=== PATIENT | female | born 1950 | race Caucasian/White ===

== ENCOUNTER → 2019-08-28 | Outpatient (CLI) | payer MEDICARE ==
[~2019-08-28] MED LIST: ACYC-113 PO; AMLO2.5T5 PO; ASCO-96 PO; BIOT1TAB2 PO; CALC600T4 PO; CBD TP; CHOL5000 PO; DICL100G19 TP; DICL50TA2 PO; FINA5TAB4 PO; GLUC1TAB29 PO; HYDR200T72 PO; LACT1CAP20 PO; LEVO100T5 PO; MAGN200T PO; MULT-709 PO; OMEG1CAP23 PO; OMEP10CA5 PO; SPIR50TA4 PO; TELM40TA PO
[2019-08-28 15:10] LABS: ALBUMIN 4.1 g/dL (3.4-5.0); ANION GAP 8 mmol/L (5-15); CALCIUM 9.9 mg/dL (8.5-10.1); CHLORIDE 103 mmol/L (98-107)
[2019-08-28 15:13] LABS: ALANINE AMINOTRANSFERASE 40 U/L (12-78); ALKALINE PHOSPHATASE 55 U/L (45-117); BILIRUBIN,TOTAL 0.3 mg/dL (0.2-1.0); CREATININE 0.99 mg/dL (0.55-1.02); TOTAL PROTEIN 7.8 g/dL (6.4-8.2)
[2019-08-28 15:17] LABS: MICROSCOPIC NOT IND
[2019-08-28 15:30] LABS: CULTURE INDICATED? NO
== END | disposition home or self-care (01) ==
LOC: STAR 14:00
PROVIDERS: ATTEND Podiatrist Foot & Ankle Surgery
DX: Z01.818 Encounter for other preprocedural examination (principal); M19.071 Primary osteoarthritis, right ankle and foot; Z91.041 Radiographic dye allergy status
CPT/HCPCS: 36415; 80053; 81003; 93005

== ENCOUNTER 2020-12-31 12:19 | Outpatient (CLI) | payer MEDICARE ==
[~2020-12-31 12:19] MED LIST changes: +ACID1TAB7 PO; -ACYC-113 PO; +ACYC200C13 PO; -CALC600T4 PO; +CALC600T60 PO
== END 2020-12-31 23:59 | disposition home or self-care (01) ==
LOC: CVU 12:19
PROVIDERS: ATTEND Internal Medicine Cardiovascular Disease
DX: Z01.810 Encounter for preprocedural cardiovascular examination (principal); I65.23 Occlusion and stenosis of bilateral carotid arteries; I10 Essential (primary) hypertension
CPT/HCPCS: 93880

== ENCOUNTER 2021-01-06 10:05 | Day surgery (SDC) | payer MEDICARE ==
[~2021-01-06] VITALS: Ht 162.6 cm; Wt 100.0 kg
[2021-01-06] MEDS ORDERED: CALC500T29 PO (10:50)
[2021-01-06] MEDS ORDERED: PLEASE ENTER HEIGHT AND WEIGHT MC SCH (11:00)
[2021-01-06] MEDS ORDERED: SODIUM CHLORIDE 0.9% 1,000 ML IV SCH ×2 (11:00→13:00)
[2021-01-06] MEDS ORDERED: DIPHENHYDRAMINE 50 MG/ML, 1ML IVPush ONE (11:00)
[2021-01-06 11:19] LABS: BASOPHILS % (AUTO) 1 % (0-1); EOSINOPHILS % (AUTO) 1 % (1-7); LYMPHOCYTES % (AUTO) 29 % (22-44); MEAN CORPUSCULAR HEMOGLOBIN 30.2 pg (27.0-34.8); MEAN CORPUSCULAR HGB CONC 33.5 g/dL (32.4-35.8); MEAN PLATELET VOLUME 8.7 fL (7.4-10.4); MONOCYTES % (AUTO) 7 % (2-9); NEUTROPHILS % (AUTO) 62 % (42-75); PLATELET COUNT 266 x10^3/uL (130-400); RED BLOOD COUNT 4.23 x10^6/uL (3.82-5.3); RED CELL DISTRIBUTION WIDTH 13.8 % (9.6-15.2)
[2021-01-06 11:21] LABS: MD NO
[2021-01-06 11:30] LABS: ANION GAP 5 mmol/L (5-15); CALCIUM 10.2 mg/dL (8.5-10.1); CHLORIDE 105 mmol/L (98-107); CREATININE 0.77 mg/dL (0.55-1.02)
[2021-01-06 11:32] LABS: INTERNATIONAL NORMALIZED RATIO 1.03 (0.93-1.1)
[2021-01-06] MEDS ORDERED: VERAPAMIL 2.5 MG/ML, 2ML ONE (11:54)
[2021-01-06] MEDS ORDERED: HEPARIN 1,000 UNITS/ML, 10ML ONE (11:54)
[2021-01-06] MEDS ORDERED: MIDAZOLAM 1 MG/ML, 5ML ONE (11:54)
[2021-01-06] MEDS ORDERED: LIDOCAINE-MPF 1%, 5ML ONE (11:54)
[2021-01-06] MEDS ORDERED: FENTANYL PF 100 MCG/2ML ONE (11:54)
[2021-01-06] MEDS ORDERED: DIPHENHYDRAMINE 50 MG/ML, 1ML ONE (12:08)
== END 2021-01-06 14:13 | disposition home or self-care (01) ==
LOC: CACL 10:05
PROVIDERS: ATTEND Internal Medicine Cardiovascular Disease
DX: I35.0 Nonrheumatic aortic (valve) stenosis (principal); I20.9 Angina pectoris, unspecified; I10 Essential (primary) hypertension; M32.9 Systemic lupus erythematosus, unspecified; E66.3 Overweight; Z68.39 Body mass index [BMI] 39.0-39.9, adult; Z79.01 Long term (current) use of anticoagulants; Z79.890 Hormone replacement therapy; Z79.899 Other long term (current) drug therapy; Z88.8 Allergy status to other drugs, medicaments and biological substances; Z91.041 Radiographic dye allergy status
CPT/HCPCS: 36415; 80048; 83880; 85025; 85610; 85730; 93458; 99156; C1769; C1894; J1200; J1644; J2250; J3010; Q9967

== ENCOUNTER 2021-02-21 16:33 | Inpatient (IN) | payer MEDICARE ==
[~2021-02-21] VITALS: Ht 162.6 cm; Wt 113.1 kg
[~2021-02-21 16:33] MED LIST changes: +CALC500T29 PO
--- NOTE | 2021-02-21 17:02 | NUR ---
TO ROOM FROM LOBBY .
--- NOTE | 2021-02-21 17:17 | NUR ---
STUDENT AT BEDSIDE FOR EVAL.
--- NOTE | 2021-02-21 17:22 | NUR ---
RT SHOULDER SURGERY 02/19/21. TODAY, PT HAS C/O TREMORS, HEADACHE AND EXTREMITY SWELLING. PT RESTING ON GURNEY W/ CALL LIGHT IN REACH, FAMILY AT BEDSIDE AND SIDE RAILS UPX2. PAULETTE ROSALES.
[2021-02-21] MEDS ORDERED: KETOROLAC 30 MG/1 ML IM ONE (17:30)
--- NOTE | 2021-02-21 17:34 | NUR ---
PT NOW HAS C/O LT LEG CRAMPS
--- NOTE | 2021-02-21 17:58 | NUR ---
URINE COLLECTED AND SENT TO LAB.
--- NOTE | 2021-02-21 18:00 | NUR ---
Susie stewart in [facility] - 02/21/21 at 1800 by [facility] AT BEDSIDE.
[2021-02-21 18:02] LABS: MICROSCOPIC NOT IND
[2021-02-21 18:20] LABS: BASOPHILS % (AUTO) 1 % (0-1); EOSINOPHILS % (AUTO) 3 % (1-7); LYMPHOCYTES % (AUTO) 22 % (22-44); MEAN CORPUSCULAR HEMOGLOBIN 30.8 pg (27.0-34.8); MEAN CORPUSCULAR HGB CONC 34.2 g/dL (32.4-35.8); MEAN PLATELET VOLUME 8.2 fL (7.4-10.4); MONOCYTES % (AUTO) 11 % (2-9); NEUTROPHILS % (AUTO) 63 % (42-75); PLATELET COUNT 287 x10^3/uL (130-400); RED BLOOD COUNT 2.67 x10^6/uL (3.82-5.3); RED CELL DISTRIBUTION WIDTH 13.6 % (9.6-15.2)
[2021-02-21] MEDS ORDERED: MORPHINE SULFATE 4 MG/ML, 1ML ONE ×2 (18:28→20:32)
[2021-02-21 18:31] LABS: ALANINE AMINOTRANSFERASE 41 U/L (12-78); ALBUMIN 3.2 g/dL (3.4-5.0); ANION GAP 6 mmol/L (5-15); CALCIUM 9.4 mg/dL (8.5-10.1); CHLORIDE 104 mmol/L (98-107); CREATININE 0.73 mg/dL (0.55-1.02)
[2021-02-21] MEDS: MORPHINE SULFATE 4 MG/ML, 1ML IVPush PRN ×2 (18:31→20:35)
[2021-02-21 18:33] LABS: ALKALINE PHOSPHATASE 118 U/L (45-117); BILIRUBIN,TOTAL 0.4 mg/dL (0.2-1.0); TOTAL PROTEIN 6.7 g/dL (6.4-8.2)
--- NOTE | 2021-02-21 18:38 | NUR ---
PT PLACED ON 4L NC S/P G[employer] WORKER FOR SAFETY.
--- NOTE | 2021-02-21 19:00 | NUR ---
PT PROVIDED W/ 2 ICEPACKS FOR SHOULDER PER PT REQUEST.
--- NOTE | 2021-02-21 19:38 | NUR ---
STUDENT AT BEDSIDE TO UPDATE PT ON POC FOR ADMIT.
--- NOTE | 2021-02-21 20:44 | NUR ---
PER DR.WILSON AMEZCUA FOR PT TO TAKE HOME OXCODONE 5 AND ROBAXIN. Addendum: 02/21/21 at [address]WILSON AMEZCUA FOR PT TO TAKE HOME OXCODONE 5 X2 PRESCRIBED (10MG TOTAL) AND ROBAXIN 750MG.
[2021-02-21] MEDS ORDERED: NYST1000 PO (20:56)
[2021-02-21] MEDS ORDERED: OXYC5CAP2 PO (20:56)
[2021-02-21] MEDS ORDERED: AMOX-367 PO (20:56)
[2021-02-21] MEDS ORDERED: ONDA4TAB7 PO (20:56)
[2021-02-21] MEDS ORDERED: LIDO700A20 TD (20:56)
[2021-02-21] MEDS ORDERED: NAPR-685 PO (20:56)
[2021-02-21] MEDS ORDERED: METH-640 PO (20:56)
[2021-02-21] MEDS ORDERED: HYDR-826 PO ×2 (20:56)
--- NOTE | 2021-02-21 20:58 | NUR ---
US AT BEDSIDE.
--- NOTE | 2021-02-21 21:00 | NUR ---
PT 1 PERSON ASSIST TO BEDSIDE COMMODE. ASSISTED BY DAUGHTER. RETURNED TO ROOM W/O INCIDENT.
--- NOTE | 2021-02-21 21:42 | NUR ---
PURPLE SLIP SENT TO PHARM
--- NOTE | 2021-02-21 21:42 | NUR ---
CONSENT FOR BLOOD TRANSFUSION SIGNED AND PLACED IN CHART.
--- NOTE | 2021-02-21 21:56 | NUR ---
REPORT GIVEN TO IVANA COLLIER. ASSUMING CARE OF PT AT THIS TIME. AWAITING BLOOD FROM BLOOD BANK AND ADMIT ORDER. PT RESTING ON GURNEY W/ CALL LIGHT IN REACH AND SIDE RAILS UPX2. RESP EVEN AND UNLABORED, PAULETTE.
[2021-02-21 22:17] VITALS: BP 118/34
[2021-02-21 22:32] VITALS: BP 119/57
--- NOTE | 2021-02-21 22:57 | NUR ---
REPORT TO DIONNE COLLIER.
--- NOTE | 2021-02-21 23:00 | NUR ---
HOSPITALIST AT BEDSIDE.
[2021-02-22] VITALS (7 sets, daily range): BP systolic 105–136; BP diastolic 48–78
[2021-02-22] MEDS ORDERED: TEMAZEPAM 15 MG CAPSULE PO PRN
[2021-02-22] MEDS ORDERED: ACETAMINOPHEN 325 MG TABLET PO PRN
[2021-02-22] MEDS ORDERED: METHOCARBAMOL 500 MG TABLET PO PRN
[2021-02-22] MEDS ORDERED: DOCUSATE 100 MG CAPSULE PO PRN
[2021-02-22] MEDS: OXYcodone IR 5MG TABLET PO PRN ×4 (00:51→15:46)
[2021-02-22] MEDS ORDERED: NAPROXEN 500 MG TABLET PO PRN (01:00)
[2021-02-22] MEDS ORDERED: OXYcodone IR 5MG TABLET PO PRN (01:00)
[2021-02-22] MEDS: NYSTATIN 500,000 UNITS/5 ML UDC PO SCH ×3 (01:23→14:49)
[2021-02-22] MEDS ORDERED: LEVOTHYROXINE 100 MCG TABLET PO SCH (06:00)
[2021-02-22 06:28] LABS: ANION GAP 7 mmol/L (5-15); CALCIUM 9.4 mg/dL (8.5-10.1); CHLORIDE 103 mmol/L (98-107); CREATININE 0.66 mg/dL (0.55-1.02)
[2021-02-22 06:30] LABS: BASOPHILS % (AUTO) 0 % (0-1); EOSINOPHILS % (AUTO) 3 % (1-7); LYMPHOCYTES % (AUTO) 19 % (22-44); MEAN CORPUSCULAR HEMOGLOBIN 31.3 pg (27.0-34.8); MEAN CORPUSCULAR HGB CONC 34.5 g/dL (32.4-35.8); MEAN PLATELET VOLUME 8.2 fL (7.4-10.4); MONOCYTES % (AUTO) 12 % (2-9); NEUTROPHILS % (AUTO) 66 % (42-75); PLATELET COUNT 282 x10^3/uL (130-400); RED BLOOD COUNT 3.16 x10^6/uL (3.82-5.3); RED CELL DISTRIBUTION WIDTH 13.6 % (9.6-15.2)
[2021-02-22] MEDS ORDERED: TEMPLATE NON-FORMULARY MED. (Biotin** 2,500 MG) PO SCH (09:00)
[2021-02-22] MEDS ORDERED: LOSARTAN 50MG TABLET PO SCH (09:00)
[2021-02-22] MEDS ORDERED: SPIRONOLACTONE 50 MG TABLET PO SCH (09:00)
[2021-02-22] MEDS ORDERED: OMEPRAZOLE 10 MG CAPSULE.DR PO SCH (09:00)
[2021-02-22] MEDS ORDERED: MAGNESIUM OXIDE 400 MG TABLET PO SCH (09:00)
[2021-02-22] MEDS ORDERED: CHOLECALCIFEROL 1,000 UNIT TABLET PO SCH (09:00)
[2021-02-22] MEDS ORDERED: CALCIUM CARBONATE 500 MG TABLET PO SCH (09:00)
[2021-02-22] MEDS ORDERED: FINASTERIDE 5 MG TABLET PO SCH ×2 (09:00→21:00)
[2021-02-22] MEDS ORDERED: AMLODIPINE 5 MG TABLET PO SCH (09:00)
[2021-02-22] MEDS ORDERED: HYDROXYCHLOROQUINE 200 MG TABLET PO SCH ×2 (09:00)
[2021-02-22] MEDS ORDERED: AMOXICILLIN/CLAV 500-125MG TABLET PO SCH (09:00)
[2021-02-22] MEDS ORDERED: [UNRECOGNIZED DRUG - MIXTURE] PO SCH (09:00)
[2021-02-22] MEDS ORDERED: ASCORBIC ACID 500 MG TABLET PO SCH (09:00)
[2021-02-22 15:00] LABS: CLOSTRIDIUM DIFFICILE ANTIGEN NEGATIVE; CLOSTRIDIUM DIFFICILE TOXIN NEGATIVE (Negative)
== END 2021-02-22 17:39 | disposition home or self-care (01) | DRG 920 ==
LOC: ED 21:57 → EDIP 22:15 → 3N 23:37
PROVIDERS: ADMIT Internal Medicine; ATTEND Internal Medicine
PROC: 30233N1 Transfusion of Nonautologous Red Blood Cells into Peripheral Vein, Percutaneous Approach (ICD-10-PCS; principal; 2021-02-21)
DX: M96.841 Postprocedural hematoma of a musculoskeletal structure following other procedure (principal); E87.1 Hypo-osmolality and hyponatremia; Z68.41 Body mass index [BMI] 40.0-44.9, adult; D64.9 Anemia, unspecified; E66.01 Morbid (severe) obesity due to excess calories; I10 Essential (primary) hypertension; I35.0 Nonrheumatic aortic (valve) stenosis; Y83.8 Other surgical procedures as the cause of abnormal reaction of the patient, or of later complication, without mention of misadventure at the time of the procedure; Y82.8 Other medical devices associated with adverse incidents; Y92.89 Other specified places as the place of occurrence of the external cause; Z79.899 Other long term (current) drug therapy
CPT/HCPCS: 36415; 36430; 70450; 80048; 80053; 81003; 85025; 86850; 86900; 86923; 87324; 93005; 96374; 96376; G0378; J2270; P9016

== ENCOUNTER → 2021-05-26 | Outpatient (CLI) | payer MEDICARE | END | disposition home or self-care (01) | LOC: STAR 11:18 | PROVIDERS: ATTEND Neurological Surgery | DX: Z01.812 Encounter for preprocedural laboratory examination (principal); Z20.822 Contact with and (suspected) exposure to COVID-19; S22.000A Wedge compression fracture of unspecified thoracic vertebra, initial encounter for closed fracture; I45.10 Unspecified right bundle-branch block; X58.XXXA Exposure to other specified factors, initial encounter; Y93.89 Activity, other specified; Y92.89 Other specified places as the place of occurrence of the external cause; Y99.8 Other external cause status ==